=== PATIENT | female | born 1980 | race Caucasian/White ===

== ENCOUNTER 2018-01-30 08:57 | Emergency (ER) | payer OTHER ==
[~2018-01-30] VITALS: Ht 160 cm; Wt 167.0 kg
[2018-01-30 09:50] LABS: HEMATOCRIT 32.2 % (36.0-46.0); HEMOGLOBIN 10.5 G/DL (11.9-15.5); MCH 25.5 PG (29.0-34.0); MCHC 32.6 G/DL (30.0-36.0); MCV 78.2 FL (83-99); PLATELET COUNT 270 K/uL (156-360); RBC DIS.WIDTH-CV 15.2 % (11.8-14.6); RBC DIS.WIDTH-SD 42.7 % (39-53); RED BLOOD COUNT 4.12 M/uL (3.80-5.20); WHITE BLOOD COUNT 19.5 K/uL (4.1-10.2)
[2018-01-30 10:00] LABS: ALBUMIN 2.9 g/dL (3.2-4.8)
[2018-01-30 10:01] LABS: CHLORIDE 104 mEq/L (99-109); POTASSIUM 3.6 mEq/L (3.7-5.4); SODIUM 134 mEq/L (136-147)
[2018-01-30 10:03] LABS: GLUCOSE 184 mg/dL (70-99); TOTAL PROTEIN 6.6 g/dL (6.4-8.3)
[2018-01-30 10:05] LABS: TOTAL BILIRUBIN 0.7 mg/dL (0.0-1.0)
[2018-01-30 10:06] LABS: ALKALINE PHOSPHATASE 121 IU/L (3-129)
[2018-01-30 10:07] LABS: CREATININE 1.2 mg/dL (0.6-1.3); GFR ESTIMATE (CALCULATED) 54 mL/min/
[2018-01-30 10:08] LABS: AST (GOT) 10 IU/L (2-34); UREA NITROGEN (BUN) 19 mg/dL (9-23)
[2018-01-30 10:10] LABS: ALT (GPT) 9 IU/L (3-49)
[2018-01-30 12:18] LABS: APPEARANCE TURBID ((CLEAR)); BILIRUBIN SMALL; BLOOD MODERATE; COLOR AMBER ((YELLOW)); GLUCOSE (STRIP) NEGATIVE; KETONES NEGATIVE; LEUKOCYTES MODERATE; NITRITE POSITIVE; PROTEIN (STRIP) 100; SPECIFIC GRAVITY 1.027 (1.000-1.030)
[2018-01-30] MEDS ORDERED: KEFLEX500 MG PO (12:32)
[2018-01-30 12:47] LABS: BACTERIA 2+ /HPF; EPITHELIAL CELLS 2+ /HPF; MUCUS NONE SEEN /LPF; UCUL ADDED? YES; WHITE BLOOD CELLS TNTC /HPF (0-5)
[2018-01-30 13:20] VITALS: BP 111/59
== END 2018-01-30 13:21 | disposition home or self-care (01) ==
LOC: EME 08:57
PROVIDERS: Nurse Practitioner Family
DX: S93.401A Sprain of unspecified ligament of right ankle, initial encounter (principal); N39.0 Urinary tract infection, site not specified; R42 Dizziness and giddiness; W18.30XA Fall on same level, unspecified, initial encounter; Y92.000 Kitchen of unspecified non-institutional (private) residence as the place of occurrence of the external cause; Y93.89 Activity, other specified; Z87.891 Personal history of nicotine dependence
CPT/HCPCS: 73610; 80053; 81003; 82948; 85027; 87077; 87086; 87186; 93005; 99281; 99285

== ENCOUNTER 2018-03-09 08:48 | Day surgery (SDC) | payer OTHER ==
[~2018-03-09] VITALS: Ht 160 cm; Wt 167.3 kg
[~2018-03-09 08:48] MED LIST: AIRDUO RESPICL1 EAC2 IH; DESYREL 150 MG150 MG PO; FLONASE ALLERG9.9 ML BOTH NARES; KEFLEX500 MG PO; NAPROSYN500 MG PO; ULTRAM50 MG PO; ZANTAC150 MG PO; ZESTRIL10 MG PO
[2018-03-09] MEDS ORDERED: SINGULAIR10 MG PO (09:24)
[2018-03-09] MEDS ORDERED: ZYRTEC10 M2 PO (09:25)
== END 2018-03-09 10:45 | disposition home or self-care (01) ==
LOC: PAIN 08:48
DX: M47.816 Spondylosis without myelopathy or radiculopathy, lumbar region (principal); E66.01 Morbid (severe) obesity due to excess calories; Z68.44 Body mass index [BMI] 60.0-69.9, adult; J45.909 Unspecified asthma, uncomplicated; K21.9 Gastro-esophageal reflux disease without esophagitis; Z87.891 Personal history of nicotine dependence; I12.9 Hypertensive chronic kidney disease with stage 1 through stage 4 chronic kidney disease, or unspecified chronic kidney disease; N18.9 Chronic kidney disease, unspecified; R73.03 Prediabetes
CPT/HCPCS: J1030; J2250; S0020

== ENCOUNTER 2018-03-16 10:15 | Day surgery (SDC) | payer OTHER ==
[~2018-03-16] VITALS: Ht 160 cm; Wt 167.3 kg
[~2018-03-16 10:15] MED LIST changes: +SINGULAIR10 MG PO; +ZYRTEC10 M2 PO
== END 2018-03-16 11:30 | disposition home or self-care (01) ==
LOC: PAIN 10:15 → SDC 10:45 → PAIN 10:45
DX: M47.816 Spondylosis without myelopathy or radiculopathy, lumbar region (principal); Z88.1 Allergy status to other antibiotic agents; Z88.5 Allergy status to narcotic agent
CPT/HCPCS: J1030; J2250; S0020

== ENCOUNTER 2018-04-10 12:34 | Day surgery (SDC) | payer OTHER ==
[~2018-04-10] VITALS: Ht 160 cm; Wt 167.3 kg
[2018-04-11] MEDS ORDERED: PRILOSEC20 MG PO (11:49)
== END 2018-04-10 14:50 | disposition home or self-care (01) ==
LOC: PAIN 12:34
DX: M43.06 Spondylolysis, lumbar region (principal); M54.5 Low back pain; G89.29 Other chronic pain; M25.551 Pain in right hip; M70.61 Trochanteric bursitis, right hip; R73.03 Prediabetes; E66.01 Morbid (severe) obesity due to excess calories; K21.9 Gastro-esophageal reflux disease without esophagitis; I73.9 Peripheral vascular disease, unspecified; F41.9 Anxiety disorder, unspecified; Z87.891 Personal history of nicotine dependence; Z79.891 Long term (current) use of opiate analgesic; Z88.1 Allergy status to other antibiotic agents; Z88.5 Allergy status to narcotic agent
CPT/HCPCS: J1030; J2250; J3010; S0020

== ENCOUNTER 2018-04-17 07:55 | Day surgery (SDC) | payer OTHER ==
[~2018-04-17] VITALS: Ht 160 cm; Wt 167.3 kg
[~2018-04-17 07:55] MED LIST changes: +PRILOSEC20 MG PO
== END 2018-04-17 10:00 | disposition home or self-care (01) ==
LOC: PAIN 07:55 → SDC 08:30 → PAIN 10:00
DX: M47.816 Spondylosis without myelopathy or radiculopathy, lumbar region (principal); M43.06 Spondylolysis, lumbar region; G89.29 Other chronic pain; E66.01 Morbid (severe) obesity due to excess calories; Z87.891 Personal history of nicotine dependence; I10 Essential (primary) hypertension; K21.9 Gastro-esophageal reflux disease without esophagitis; J45.909 Unspecified asthma, uncomplicated; I87.8 Other specified disorders of veins; G47.33 Obstructive sleep apnea (adult) (pediatric); Z88.1 Allergy status to other antibiotic agents; Z88.5 Allergy status to narcotic agent
CPT/HCPCS: J1030; J2250; J3010; S0020